=== PATIENT | male | born 1980 | race Two or more races ===

== ENCOUNTER 2021-09-22 18:39 | Emergency (ER) | payer SELFPAY ==
[~2021-09-22] VITALS: Ht 177.8 cm; Wt 99.8 kg
[2021-09-22 20:53] VITALS: BP 160/81
[2021-09-22] MEDS ORDERED: AMOX500C2 PO (21:26)
== END 2021-09-22 21:39 | disposition home or self-care (01) ==
LOC: ER 18:41
DX: H66.92 Otitis media, unspecified, left ear (principal); E66.9 Obesity, unspecified; Z68.31 Body mass index [BMI] 31.0-31.9, adult